=== PATIENT | male | born 1990 | race Two or more races ===

== ENCOUNTER 2020-09-01 00:59 | Inpatient (IN) | payer BC ==
[~2020-09-01] VITALS: Ht 172.7 cm; Wt 120.4 kg
[2020-09-01] MEDS ORDERED: LORazepam 2 MG/ML, 1ML ONE (01:04)
--- NOTE | 2020-09-01 01:23 | NUR ---
TASK RN: REPORT TO ABEL MONTEJO. NIKIA TO ASSUME FULL CARE.
[2020-09-01] MEDS ORDERED: SODIUM CHLORIDE 0.9% 1,000ML IVBOLUS ONE (01:30)
[2020-09-01] MEDS ORDERED: SODIUM CHLORIDE FLUSH 10ML SYR IVF ONE (01:30)
[2020-09-01] MEDS ORDERED: LORazepam 2 MG/ML, 1ML IVPush ONE (01:30)
[2020-09-01 01:34] LABS: BASOPHILS % (AUTO) 1 % (0-1); EOSINOPHILS % (AUTO) 4 % (1-7); LYMPHOCYTES % (AUTO) 54 % (22-44); MEAN CORPUSCULAR HGB CONC 34.6 g/dL (33.2-36.2); MEAN PLATELET VOLUME 8.6 fL (7.4-10.4); MONOCYTES % (AUTO) 7 % (2-9); NEUTROPHILS % (AUTO) 34 % (42-75); PLATELET COUNT 225 x10^3/uL (130-400); RED BLOOD COUNT 5.31 x10^6/uL (4.38-5.82)
[2020-09-01 01:36] LABS: MD NO
[2020-09-01 01:47] LABS: ALANINE AMINOTRANSFERASE 61 U/L (12-78); ANION GAP 7 mmol/L (5-15); CALCIUM 8.6 mg/dL (8.5-10.1); CHLORIDE 109 mmol/L (98-107); CREATININE 0.84 mg/dL (0.7-1.3)
[2020-09-01 01:49] LABS: ALKALINE PHOSPHATASE 80 U/L (45-117); BILIRUBIN,TOTAL 0.2 mg/dL (0.2-1.0); TOTAL PROTEIN 7.7 g/dL (6.4-8.2)
[2020-09-01] MEDS ORDERED: SODIUM CHLORIDE 0.9% 1,000 ML IV SCH (03:00)
[2020-09-01] MEDS ORDERED: ACETAMINOPHEN 650 MG/20.3 ML UDC PO PRN (03:00)
[2020-09-01] MEDS ORDERED: LORazepam 2 MG/ML, 1ML IV PRN (03:00)
[2020-09-01 03:35] VITALS: BP 123/76
[2020-09-01 03:36] VITALS: BP 123/76
[2020-09-01] MEDS ORDERED: LEVETIRACETAM 500 MG in SODIUM CHLORIDE 0.9% 100 ML IV SCH (04:00)
[2020-09-01 06:43] VITALS: BP 133/80
[2020-09-01] MEDS ORDERED: SENNA/DOCUSATE TABLET PO SCH (09:00)
[2020-09-01] MEDS ORDERED: VALPROATE SODIUM 500 MG in DEXTROSE 5% 100 ML IV SCH (09:00)
[2020-09-01] MEDS ORDERED: APTIOM PO SCH (13:30)
[2020-09-01] MEDS ORDERED: BRIVIACT 100 MG PO SCH (13:30)
[2020-09-01 13:36] VITALS: BP 119/78
[2020-09-01] MEDS ORDERED: VALPROATE SODIUM 1,000 MG in DEXTROSE 5% 100 ML IV SCH (21:00)
== END 2020-09-01 15:50 | disposition left against medical advice (07) | DRG 101 ==
LOC: ED 02:26 → EDIP 02:40 → 5SO 03:23
PROVIDERS: ADMIT Family Medicine; ATTEND Family Medicine
DX: G40.101 Localization-related (focal) (partial) symptomatic epilepsy and epileptic syndromes with simple partial seizures, not intractable, with status epilepticus (principal); E11.9 Type 2 diabetes mellitus without complications
CPT/HCPCS: 36415; 80053; 85025; 95713; G0378; J1953; J2060; J7030